=== PATIENT | female | born 2000 | race Two or more races ===

== ENCOUNTER 2024-06-06 16:08 | Emergency (ER) | payer OTHER ==
[~2024-06-06] VITALS: Ht 162.6 cm; Wt 54.4 kg
[2024-06-06] MEDS ORDERED: 0.9 % SODIUM CHLORIDE 1,000 ML IV ONE (16:45)
[2024-06-06 16:58] LABS: HEMATOCRIT 37.2 % (36.0-45.00); HEMOGLOBIN 11.9 g/dL (12.0-15.00); MEAN CELL VOLUME 81.4 fL (80.00-100.00); MEAN CORPUSCULAR HGB CONC 31.9 g/dl (32.0-36.0); PLATELET COUNT 243 K/uL (150-450); RED BLOOD COUNT 4.57 M/uL (4.00-6.00); RED CELL DISTRIBUTION WIDTH 15.7 % (11.5-14.5)
[2024-06-06 17:39] LABS: ALBUMIN 4.1 gm/dL (3.4-5.0); ALKALINE PHOSPHATASE 36 U/L (50-136); ALT/SGPT 17 U/L (12-78); ANION GAP 11 (10.0-20.0); AST/SGOT 12 U/L (15-37); BILIRUBIN TOTAL 0.49 mg/dL (0.3-1.2); BLOOD UREA NITROGEN 10 mg/dL (7-18); BUN CREA RATIO 14 (7.0-25.0); CALCIUM 9.3 mg/dL (8.5-10.1); CARBON DIOXIDE 26 mEq/L (21-32); CHLORIDE 106 mmol/L (98-107); CREATININE SERUM 0.69 mg/dL (0.55-1.02); GFR 104.52; GLOBULINA 3.2 G/DL (2.4-3.5); GLUCOSE FASTING 100 mg/dL (65-100); OSMOLALITY SERUM 277 MOSM/KG (275-295); PHOSPHOKINASE CREATININE 51 U/L (26-192); POTASSIUM 3.85 mEq/L (3.5-5.1); SODIUM 139 mmol/L (136-145); TOTAL PROTEIN 7.3 gm/dL (6.4-8.2)
[2024-06-06 17:50] LABS: HCG QUANTITATIVE < 1 mUI/mL (1-3)
[2024-06-06 18:54] LABS: URINE APPEARANCE Clear; URINE BILIRRUBIN Negative (NEGATIVE); URINE BLOOD Negative; URINE COLOR Yellow; URINE GLUCOSE Negative (NEGATIVE); URINE KETONE Trace (NEGATIVE); URINE LEUKOCYTE Negative; URINE NITRATE Negative; URINE PROTEIN Negative (NEGATIVE); URINE UROBILINOGEN 0.2 E.U./dl
[2024-06-06 18:57] LABS: URINE BACTERIA 7.5 uL (0.0-1933); URINE EPITHELIAL CELLS 5.8 uL (0.0-38.8)
[2024-06-06 19:01] LABS: COCAINE NEGATIVE (NEGATIVE); METHADONE NEGATIVE (NEGATIVE); OPIATES NEGATIVE (NEGATIVE); THC ( Cannabinoids) NEGATIVE (NEGATIVE); URINE RBC 0.7 uL (0.0-20.8); URINE WBC 0.4 uL (0.0-23.2)
== END 2024-06-06 19:30 | disposition home or self-care (01) ==
LOC: ER 16:08
PROVIDERS: General Practice
DX: N94.6 Dysmenorrhea, unspecified (principal); Z91.018 Allergy to other foods; Z20.822 Contact with and (suspected) exposure to COVID-19